=== PATIENT | female | born 1985 | race Caucasian/White ===

== ENCOUNTER → 2017-01-07 | Outpatient (CLI) | payer BC | END | disposition home or self-care (01) | LOC: MW.CHOBGYN 09:08 | PROVIDERS: ATTEND Advanced Practice Midwife | DX: Z34.90 Encounter for supervision of normal pregnancy, unspecified, unspecified trimester (principal) | CPT/HCPCS: 87081 ==

== ENCOUNTER 2017-01-25 13:06 | Inpatient (IN) | payer BC ==
[2017-01-25] MEDS ORDERED: Nalbuphine 10 MG/1 ML Vial IVPUSH PRN (13:47)
[2017-01-25] MEDS ORDERED: Lidocaine 1% 50 ML MDV INJECT PRN (13:47)
[2017-01-25] MEDS ORDERED: Water For Irrigation,Sterile 1,000 ML Container IRR PRN (13:47)
[2017-01-25] MEDS ORDERED: Sodium Chloride 0.9% 2.5 ML Syringe FLUSH PRN (13:47)
[2017-01-25] MEDS ORDERED: Sodium Chloride 0.9% 10 ML Syringe FLUSH PRN (13:47)
[2017-01-25] MEDS ORDERED: Carboprost Tromethamine 250 MCG/1 ML Amp IM PRN (13:47)
[2017-01-25] MEDS ORDERED: Methylergonovine 0.2 MG/1 ML Amp IM PRN (13:47)
[2017-01-25] MEDS ORDERED: Misoprostol 200 MCG Tab PO PRN (13:47)
[2017-01-25] MEDS ORDERED: Oxytocin/Lactated Ringers 30 UNIT/500 ML BAG IV SCH ×2 (14:00→17:30)
[2017-01-25] MEDS: Lactated Ringers 1,000 ML IV SCH ×3 (14:15→20:10)
--- NOTE | 2017-01-25 14:37 | PCM.LDHP ---
L&D History of Present Illness - General Date of Service: 01/25/17 Admit Problem/Dx: Patient Status Order with Admit Dx/Problem 01/25/17 13:47 Patient Status [ADT] Routine Admission Diagnosis/Problem Admission Diagnosis/Problem -related examination 01/25/17 14:32 31 yo EDC 02/01/2017 39wks. IOL for social/childcare provider issues. Source of Information: Patient History Limitations: Reports: No limitations - History of Present Illness Improves with: Reports: None Worsens with: Reports: None Associated Symptoms: Reports: N - Related Data Allergies/Adverse Reactions: Allergies Allergy/AdvReac Type Severity Reaction Status Date / Time codeine Allergy Hallucinati Verified 11/23/14 11:53 ons dimenhydrinate Allergy Difficulty Verified 11/23/14 11:53 [From Dramamine] Breathing egg Allergy Stomach Verified 11/23/14 11:53 Ache gluten Allergy Stomach Verified 11/23/14 11:53 Upset latex Allergy Redness Verified 11/23/14 11:54 milk Allergy Stomach Verified 11/23/14 11:53 Upset Home Medications: Home Meds Doxylamine Succinate [Unisom] 25 mg PO PRN 11/23/14 [History] traMADol [Ultram] 50 mg PO Q6H PRN #30 tablet 11/24/14 [Rx] Past Medical History - Past Health History Medical/Surgical History: Denies Medical/Surgical History Social & Family History - Family History Neurological: Reports: Alzheimers disease, Other (see below) Other Neurological Family History: epilepsy Psychiatric: Reports: Autism Endocrine/Metabolic: Reports: Diabetes, type II - Tobacco Use Smoking Status *Q: Never Smoker - Alcohol Use Days Per Week of Alcohol Use: 0 - Recreational Drug Use Recreational Drug Use: No Drug Use in Last 12 Months: No H&P Review of Systems - Review of Systems: Review Of Systems: See Below General: Reports: no symptoms HEENT: Reports: no symptoms Pulmonary: Reports: No Symptoms Cardiovascular: Reports: no symptoms Gastrointestinal: Reports: No symptoms Genitourinary: Reports: no symptoms Musculoskeletal: Reports: no symptoms Skin: Reports: no symptoms Psychiatric: Reports: no symptoms Neurological: Reports: No Symptoms Hematologic/Lymphatic: Reports: no symptoms Immunologic: Reports: no symptoms L&D Exam - Exam Exam: See Below - Vital Signs Weight: 81.647 kg - OB Specific movement: active heart tones: present Heart Rate (FHR) Variability: Moderate (6-25 bmp) Presentation: Vertex - Herrera Score Herrera Score Cervix Position: Posterior Herrera Score Consistency: Soft Herrera Score Effacement: 51-70% Herrera Score Dilation: 3-4 cm Herrera Score 's Station: -2 Herrera Score Total: 7 - Exam General: alert, oriented, cooperative HEENT: Hearing intact Lungs: Normal respiratory effort Abdomen: soft (gravid) Rectal Exam: Deferred Genitourinary: Normal bimanual exam (AROM clear), Cervical dilitation Back Exam: normal inspection, full range of motion Extremities: normal inspection Skin: warm, dry, intact Neurological: cranial nerves intact Psychiatric: alert, normal affect, normal mood - Patient Data Lab Results last 24 hrs: Laboratory Results - last 24 hr 01/25/17 Range/Units 14:05 WBC 8.20 (4.0-11.0) K/uL RBC 4.15 L (4.30-5.90) M/uL Hgb 10.5 L (12.0-16.0) g/dL Hct 34.0 L (36.0-46.0) % MCV 81.9 (80.0-98.0) fL MCH 25.3 L (27.0-32.0) pg MCHC 30.9 L (31.0-37.0) g/dL RDW Std Deviation 61.2 (28.0-62.0) fl RDW Coeff of Gato 21 H (11.0-15.0) % Plt Count 266 (150-400) K/uL MPV 9.80 (7.40-12.00) fL Nucleated RBC % 0.0 /100WBC Nucleated RBCs # 0 K/uL Result Diagrams: 01/25/17 14:05 - Problem List (1) Supervision of normal IUP (intrauterine ) in multigravida SNOMED Code(s): 782108958, 275970963, 065067213 ICD Code: Z34.90 - ENCNTR FOR SUPRVSN OF NORMAL , UNSP, UNSP TRIMESTER Status: Acute Priority: High Current Visit: Yes Qualifiers: Trimester: third trimester Qualified Code(s): Z34.93 - Encounter for supervision of normal , unspecified, third trimester Problem List Initiated/Reviewed/Updated: Yes Orders Last 24hrs: Active Orders 24 hr Category Date Time Status Patient Status [ADT] Routine ADT 01/25/17 13:47 Active Heart Tones [RC] CONTINUOUS Care 01/25/17 13:47 Active Non Stress Test [RC] PER UNIT ROUTINE Care 01/25/17 13:47 Active May Shower [RC] ASDIRECTED Care 01/25/17 13:47 Active Notify Provider [RC] PRN Care 01/25/17 13:47 Active Up ad Liliana [RC] ASDIRECTED Care 01/25/17 13:47 Active Vaginal Exam [RC] PRN Care 01/25/17 13:47 Active Vital Signs [RC] PER UNIT ROUTINE Care 01/25/17 13:47 Active Clear Liquid Diet [DIET] Diet 01/25/17 Dinner Active TYPE AND SCREEN [BBK] Routine Lab 01/25/17 14:05 Received Carboprost Tromethamine [Hemabate DS] Med 01/25/17 13:47 Active 250 mcg IM ASDIRECTED PRN Lactated Ringers [Ringers, Lactated] 1,000 ml Med 01/25/17 14:00 Active IV ASDIRECTED Lidocaine 1% [Xylocaine 1%] Med 01/25/17 13:47 Active 50 ml INJECT .ONCE PRN Methylergonovine [Methergine] Med 01/25/17 13:47 Active 0.2 mg IM ASDIRECTED PRN Misoprostol [Cytotec] Med 01/25/17 13:47 Active 200 mcg PO .ONCE PRN Nalbuphine [Nubain] Med 01/25/17 13:47 Active 10 mg IVPUSH Q1H PRN Sodium Chloride 0.9% [Saline Flush] Med 01/25/17 13:47 Active 10 ml FLUSH ASDIRECTED PRN Sodium Chloride 0.9% [Saline Flush] Med 01/25/17 13:47 Active 2.5 ml FLUSH ASDIRECTED PRN Water For Irrigation,Sterile [Sterile Water for Med 01/25/17 13:47 Active Irrigation] 1,000 ml IRR ASDIRECTED PRN Scalp Electrode [WOMSER] Per Unit Routine Oth 01/25/17 13:47 Ordered Peripheral IV Insertion Adult [OM.PC] Routine Oth 01/25/17 13:47 Ordered Resuscitation Status Routine Resus Stat 01/25/17 13:47 Ordered Medication Orders Carboprost Tromethamine (Hemabate Ds) 250 mcg IM ASDIRECTED PRN PRN Reason: Post Hemorrhage Lactated Ringer's (Ringers, Lactated) 1,000 mls @ 150 mls/hr IV ASDIRECTED CHRISTIE Lidocaine HCl (Xylocaine 1%) 50 ml INJECT .ONCE PRN PRN Reason: Laceration repair Methylergonovine Maleate (Methergine) 0.2 mg IM ASDIRECTED PRN PRN Reason: Post Hemorrhage Misoprostol (Cytotec) 200 mcg PO .ONCE PRN PRN Reason: Post Hemorrhage Nalbuphine HCl (Nubain) 10 mg IVPUSH Q1H PRN PRN Reason: Pain (severe 7-10) Stop: 01/25/17 15:48 Sodium Chloride (Saline Flush) 10 ml FLUSH ASDIRECTED PRN PRN Reason: Keep Vein Open Sodium Chloride (Saline Flush) 2.5 ml FLUSH ASDIRECTED PRN PRN Reason: Keep Vein Open Sterile Water (Sterile Water For Irrigation) 1,000 ml IRR ASDIRECTED PRN PRN Reason: delivery Assessment/Plan Comment:: A: 31 yo EDC 02/01/2017 39wks. IOL for social/childcare provider issues, O+, RI, GBS neg. P: Admit to L&D, AROM, if no change in 2 hours start pitocin, anticipate
[2017-01-25] MEDS ORDERED: Oxytocin/Lactated Ringers 30 UNIT/500 ML BAG ONE (17:26)
[2017-01-25] MEDS ORDERED: fentaNYL 100 MCG/2 ML SDV ONE (19:45)
[2017-01-25] MEDS ORDERED: Ropivacaine 0.2% 2 MG/ML 20 ML SDV ONE (19:46)
[2017-01-25] MEDS ORDERED: Ropivacaine HCl/PF 100 ML ONE (19:46)
--- NOTE | 2017-01-25 20:40 | PCM.PREANE ---
Preanesthetic Assessment - Anesthesia/Transfusion/Family Hx Anesthesia History: Prior Anesthesia Without Reaction (epidural anesthesia only , no GETA) Other Type of Anesthesia Reaction Comment: Denies any known family history Family History of Anesthesia Reaction: No Transfusion History: No Prior Transfusion(s) - Review of Systems General: No Symptoms Pulmonary: No Symptoms Cardiovascular: No Symptoms Gastrointestinal: No symptoms Neurological: No Symptoms Other: Reports: None - Physical Assessment NPO Status Date: 01/25/17 NPO Status Time: 20:35 (cl liquids) Height: 1.73 m Weight: 81.647 kg ASA Class: 2 Mental Status: Alert & Oriented x3 Airway Class: Mallampati = 2 Dentition: Reports: Normal Dentition Thyro-Mental Finger Breadths: 3 Mouth Opening Finger Breadths: 3 ROM/Head Extension: Full Lungs: Clear to auscultation, Normal respiratory effort Cardiovascular: Regular Rate, Regular Rhythm - Lab Values: Laboratory Last Values WBC 8.20 K/uL (4.0-11.0) 01/25/17 14:05 RBC 4.15 M/uL (4.30-5.90) L 01/25/17 14:05 Hgb 10.5 g/dL (12.0-16.0) L 01/25/17 14:05 Hct 34.0 % (36.0-46.0) L 01/25/17 14:05 MCV 81.9 fL (80.0-98.0) 01/25/17 14:05 MCH 25.3 pg (27.0-32.0) L 01/25/17 14:05 MCHC 30.9 g/dL (31.0-37.0) L 01/25/17 14:05 RDW Std Deviation 61.2 fl (28.0-62.0) 01/25/17 14:05 RDW Coeff of Gato 21 % (11.0-15.0) H 01/25/17 14:05 Plt Count 266 K/uL (150-400) 01/25/17 14:05 MPV 9.80 fL (7.40-12.00) 01/25/17 14:05 Nucleated RBC % 0.0 /100WBC 01/25/17 14:05 Nucleated RBCs # 0 K/uL 01/25/17 14:05 Blood Type O POSITIVE 04/02/17 14:05 Antibody Screen NEGATIVE 01/25/17 14:05 - Allergies Allergies/Adverse Reactions: Allergies Allergy/AdvReac Type Severity Reaction Status Date / Time codeine Allergy Hallucinati Verified 11/23/14 11:53 ons dimenhydrinate Allergy Difficulty Verified 11/23/14 11:53 [From Dramamine] Breathing egg Allergy Stomach Verified 11/23/14 11:53 Ache gluten Allergy Stomach Verified 11/23/14 11:53 Upset latex Allergy Redness Verified 11/23/14 11:54 milk Allergy Stomach Verified 11/23/14 11:53 Upset - Blood Blood Available: Yes Product(s) Available: PRBC - Acknowledgements Anesthesia Type Planned: Epidural Pt an Appropriate Candidate for the Planned Anesthesia: Yes Alternatives and Risks of Anesthesia Discussed w Pt/Guardian: Yes Pt/Guardian Understands and Agrees with Anesthesia Plan: Yes PreAnesthesia Questionnaire - Past Health History Medical/Surgical History: Denies Medical/Surgical History - SUBSTANCE USE Smoking Status *Q: Never Smoker Days Per Week of Alcohol Use: 0 Recreational Drug Use History: No - HOME MEDS Home Medications: Home Meds Doxylamine Succinate [Unisom] 25 mg PO PRN 11/23/14 [History] traMADol [Ultram] 50 mg PO Q6H PRN #30 tablet 11/24/14 [Rx] - CURRENT (IN HOUSE) MEDS Current Meds: Current Medications Carboprost Tromethamine (Hemabate Ds) 250 mcg IM ASDIRECTED PRN PRN Reason: Post Hemorrhage Lactated Ringer's (Ringers, Lactated) 1,000 mls @ 150 mls/hr IV ASDIRECTED CHRISTIE Last Admin: 01/25/17 20:10 Dose: 150 mls/hr Oxytocin/Lactated Ringer's (Pitocin In Lr 30 Units/500 Ml) 30 unit in 500 mls @ 2 mls/hr IV TITRATE CHRISTIE; 2 MUNITS/MIN PRN Reason: Protocol Last Titration: 01/25/17 18:19 Dose: 6 munits/min, 6 mls/hr Lidocaine HCl (Xylocaine 1%) 50 ml INJECT .ONCE PRN PRN Reason: Laceration repair Methylergonovine Maleate (Methergine) 0.2 mg IM ASDIRECTED PRN PRN Reason: Post Hemorrhage Misoprostol (Cytotec) 200 mcg PO .ONCE PRN PRN Reason: Post Hemorrhage Sodium Chloride (Saline Flush) 10 ml FLUSH ASDIRECTED PRN PRN Reason: Keep Vein Open Sodium Chloride (Saline Flush) 2.5 ml FLUSH ASDIRECTED PRN PRN Reason: Keep Vein Open Sterile Water (Sterile Water For Irrigation) 1,000 ml IRR ASDIRECTED PRN PRN Reason: delivery Discontinued Medications Fentanyl (Sublimaze) Confirm Administered Dose 300 mcg .ROUTE .STK-MED ONE Stop: 01/25/17 19:46 Oxytocin/Lactated Ringer's (Pitocin In Lr 30 Units/500 Ml) 30 unit in 500 mls @ 999 mls/hr IV TITRATE CHRISTIE PRN Reason: 999 MUNITS/MIN Stop: 01/25/17 14:31 Oxytocin/Lactated Ringer's (Pitocin In Lr 30 Units/500 Ml) Confirm Administered Dose 30 unit in 500 mls @ as directed .ROUTE .STK-MED ONE Stop: 01/25/17 17:27 Ropivacaine (Naropin 0.2%) Confirm Administered Dose 100 mls @ as directed .ROUTE .STK-MED ONE Stop: 01/25/17 19:47 Nalbuphine HCl (Nubain) 10 mg IVPUSH Q1H PRN PRN Reason: Pain (severe 7-10) Stop: 01/25/17 15:48 Ropivacaine (Naropin 0.2%) Confirm Administered Dose 20 ml .ROUTE .STK-MED ONE Stop: 01/25/17 19:47 Preanesthetic Assessment - ANESTHESIA/TRANSFUSION/FAMILY HX Anesthesia/Transfusion History: No Prior Transfusion(s), Prior Anesthesia Other Type of Anesthesia Reaction Comment: Denies any known family history Family History of Anesthesia Reaction: No Intubation History: Unknown - PHYSICAL ASSESSMENT Height: 1.73 m Weight: 81.647 kg - LAB Values: Laboratory Last Values WBC 8.20 K/uL (4.0-11.0) 01/25/17 14:05 RBC 4.15 M/uL (4.30-5.90) L 01/25/17 14:05 Hgb 10.5 g/dL (12.0-16.0) L 01/25/17 14:05 Hct 34.0 % (36.0-46.0) L 01/25/17 14:05 MCV 81.9 fL (80.0-98.0) 01/25/17 14:05 MCH 25.3 pg (27.0-32.0) L 01/25/17 14:05 MCHC 30.9 g/dL (31.0-37.0) L 01/25/17 14:05 RDW Std Deviation 61.2 fl (28.0-62.0) 01/25/17 14:05 RDW Coeff of Gato 21 % (11.0-15.0) H 01/25/17 14:05 Plt Count 266 K/uL (150-400) 01/25/17 14:05 MPV 9.80 fL (7.40-12.00) 01/25/17 14:05 Nucleated RBC % 0.0 /100WBC 01/25/17 14:05 Nucleated RBCs # 0 K/uL 01/25/17 14:05 Blood Type O POSITIVE 01/25/17 14:05 Antibody Screen NEGATIVE 01/25/17 14:05 - ALLERGIES Allergies/Adverse Reactions: Allergies Allergy/AdvReac Type Severity Reaction Status Date / Time codeine Allergy Hallucinati Verified 11/23/14 11:53 ons dimenhydrinate Allergy Difficulty Verified 11/23/14 11:53 [From Dramamine] Breathing egg Allergy Stomach Verified 11/23/14 11:53 Ache gluten Allergy Stomach Verified 11/23/14 11:53 Upset latex Allergy Redness Verified 11/23/14 11:54 milk Allergy Stomach Verified 11/23/14 11:53 Upset - Free Text/Narrative Note: Labor Analgesia/Epidural Procedure start date: 01/25/17 time: 1946 Attending provider aware Chart reviewed Permit signed Labs reviewed VS/ FHR reviewed Pt identified/ID band Pt assessed Risks/Benefits discussed and accepted Monitors in place (BP, HR, SPO2) Patient, Site, Procedure Verification, Pause. Pain "10/10" Fluid bolus infused (fluid type and amount): 1500 ml LR Position: Sitting @ 1955 Prep: Betadine X 3 Sterile Drape Intradermal Wheal: 3 ml 1% Lidocaine Regional placement level: L3-4 Needle: 17 g Tuohy Approach: Midline Technique: TANYA glass syringe W 3 ml Sterile water TANYA needle depth: 7 cm Paresthesia: None Fluid Obtained: None Catheter insertion time: 1999 Catheter depth at skin: 20 cm Test Dose Time: 2000 RX: 3 ml 1.5% lidocaine with 1:200,000 epi Response: Negative Loading dose Time: 1318-2109 RX: 100 mcg fentanyl followed by 10 ml 0.2% ropivacaine in 5 ml increments over 6 minutes Pt position: semi fowlers with RAVIN Continuous infusion Start Time: 2012 RX: 100 ml 0.2% ropivacaine with 200 mcg fentanyl added [2mcg/m.] Continuous infusion rate: 8 ml/hr CREMATORY ATTENDANT bolus option: 5 ml q 15 min Pt response Post procedure pain level: reports pain much improved, but does have "pressure" in bottom. Has made progress in labor during placement. VS and FHR monitored in unit post placement (See OB traceview for documentation. ) Procedure end date: 01/25/17 time: 2044
--- NOTE | 2017-01-25 22:17 | PCM.DEL ---
L & D Note - General Info Date of Service: 01/25/17 Mother's Due Date: 02/01/17 - Delivery Note Labor: spontaneous Presentation: Vertex Anesthesia Type: None Episiotomy Type: None Laceration: none Placenta: intact, spontaneous Cord: 3 vessels Estimated blood loss: 200 Resuscitation needed: No Harleigh: stimulated Score 1 min: 9 Score 5 min: 9 Second Stage Interventions: Reports: Pushing Effectively Delivery Comments (Free Text/Narrative):: of viable male over intact perineum. Head delivered, nuchel cord x1, shoulders and body delivered through easily. to mothers abdomen with RN at for eval. Delayed cord clamping, pitocin to IVF, Cord clamped and cut by FOB. Cord blood collected. Placenta delivered grossly intact. 3VC. Inspection noted intact perineum. EBL 200cc, APGARS 9/9, Wt: 8lb 5oz. Mother and baby left in stable condition for recovery bonding. Induction Criteria - Herrera Score Herrera Score Dilation: 3-4 cm Herrera Score Effacement: >80% Herrera Score Infant's Station: -2 Herrera Score Consistency: Soft Herrera Score Cervix Position: Posterior Herrera Score Total: 8 Herrera Score Presenting Part: Reports: Cephalic - Induction Gestational Age >/= 39 wks: Yes Estimated pelvis: Reports: Adequate Reassuring monitoring strip: Yes Absence of tachy systole: Yes - General Info Date of Service: 01/25/17 Admission Dx/Problem (Free Text): Patient Status Order with Admit Dx/Problem 01/25/17 13:47 Patient Status [ADT] Routine Admission Diagnosis/Problem Admission Diagnosis/Problem -related examination 01/25/17 14:32 31 yo EDC 02/01/2017 39wks. IOL for social/early childhood issues. Functional Status: Reports: pain controlled - Review of Systems General: Reports: No Symptoms HEENT: Reports: no symptoms Pulmonary: Reports: no symptoms Cardiovascular: Reports: No Symptoms Gastrointestinal: Reports: No symptoms Genitourinary: Reports: no symptoms Musculoskeletal: Reports: no symptoms Skin: Reports: no symptoms Neurological: Reports: No Symptoms Psychiatric: Reports: no symptoms - Patient Data Weight - most recent: 81.647 kg Lab Results last 24 hrs: Laboratory Results - last 24 hr 01/25/17 01/25/17 Range/Units 14:05 14:05 WBC 8.20 (4.0-11.0) K/uL RBC 4.15 L (4.30-5.90) M/uL Hgb 10.5 L (12.0-16.0) g/dL Hct 34.0 L (36.0-46.0) % MCV 81.9 (80.0-98.0) fL MCH 25.3 L (27.0-32.0) pg MCHC 30.9 L (31.0-37.0) g/dL RDW Std Deviation 61.2 (28.0-62.0) fl RDW Coeff of Gato 21 H (11.0-15.0) % Plt Count 266 (150-400) K/uL MPV 9.80 (7.40-12.00) fL Nucleated RBC % 0.0 /100WBC Nucleated RBCs # 0 K/uL Blood Type O POSITIVE Antibody Screen NEGATIVE Med Orders - Current: Current Medications Carboprost Tromethamine (Hemabate Ds) 250 mcg IM ASDIRECTED PRN PRN Reason: Post Hemorrhage Lactated Ringer's (Ringers, Lactated) 1,000 mls @ 150 mls/hr IV ASDIRECTED CHRISTIE Last Admin: 01/25/17 20:10 Dose: 150 mls/hr Oxytocin/Lactated Ringer's (Pitocin In Lr 30 Units/500 Ml) 30 unit in 500 mls @ 2 mls/hr IV TITRATE CHRISTIE; 2 MUNITS/MIN PRN Reason: Protocol Last Titration: 01/25/17 18:19 Dose: 6 munits/min, 6 mls/hr Lidocaine HCl (Xylocaine 1%) 50 ml INJECT .ONCE PRN PRN Reason: Laceration repair Methylergonovine Maleate (Methergine) 0.2 mg IM ASDIRECTED PRN PRN Reason: Post Hemorrhage Misoprostol (Cytotec) 200 mcg PO .ONCE PRN PRN Reason: Post Hemorrhage Sodium Chloride (Saline Flush) 10 ml FLUSH ASDIRECTED PRN PRN Reason: Keep Vein Open Sodium Chloride (Saline Flush) 2.5 ml FLUSH ASDIRECTED PRN PRN Reason: Keep Vein Open Sterile Water (Sterile Water For Irrigation) 1,000 ml IRR ASDIRECTED PRN PRN Reason: delivery Discontinued Medications Fentanyl (Sublimaze) Confirm Administered Dose 300 mcg .ROUTE .STK-MED ONE Stop: 01/25/17 19:46 Oxytocin/Lactated Ringer's (Pitocin In Lr 30 Units/500 Ml) 30 unit in 500 mls @ 999 mls/hr IV TITRATE CHRISTIE PRN Reason: 999 MUNITS/MIN Stop: 01/25/17 14:31 Oxytocin/Lactated Ringer's (Pitocin In Lr 30 Units/500 Ml) Confirm Administered Dose 30 unit in 500 mls @ as directed .ROUTE .STK-MED ONE Stop: 01/25/17 17:27 Ropivacaine (Naropin 0.2%) Confirm Administered Dose 100 mls @ as directed .ROUTE .STK-MED ONE Stop: 01/25/17 19:47 Nalbuphine HCl (Nubain) 10 mg IVPUSH Q1H PRN PRN Reason: Pain (severe 7-10) Stop: 01/25/17 15:48 Ropivacaine (Naropin 0.2%) Confirm Administered Dose 20 ml .ROUTE .STK-MED ONE Stop: 01/25/17 19:47 - Exam General: alert, oriented, cooperative, no acute distress Lungs: Normal respiratory effort Abdomen: soft, no tenderness, no distension (Female) Exam: Normal external exam, Normal bimanual exam, Vaginal bleeding Back Exam: normal inspection Extremities: no edema Skin: warm, dry, intact Wound/Incisions: healing well Neurological: no new focal deficit Psy/Mental Status: alert, normal affect, normal mood - Problem List & Annotations (1) Supervision of normal IUP (intrauterine ) in multigravida SNOMED Code(s): 936879106, 074932079, 135199609 Code(s): Z34.90 - ENCNTR FOR SUPRVSN OF NORMAL , UNSP, UNSP TRIMESTER Status: Acute Priority: High Current Visit: Yes Qualifiers: Trimester: third trimester Qualified Code(s): Z34.93 - Encounter for supervision of normal , unspecified, third trimester (2) (normal spontaneous vaginal delivery) SNOMED Code(s): 40035815 Code(s): O80 - ENCOUNTER FOR FULL-TERM UNCOMPLICATED DELIVERY Status: Acute Priority: Medium Current Visit: Yes - Problem List Review Problem List Initiated/Reviewed/Updated: Yes - My Orders Last 24 Hours: My Active Orders 01/25/17 13:47 Patient Status [ADT] Routine Heart Tones [RC] CONTINUOUS Non Stress Test [RC] PER UNIT ROUTINE May Shower [RC] ASDIRECTED Notify Provider [RC] PRN Up ad Liliana [RC] ASDIRECTED Vaginal Exam [RC] PRN Vital Signs [RC] PER UNIT ROUTINE Carboprost Tromethamine [Hemabate DS] 250 mcg IM ASDIRECTED PRN Lidocaine 1% [Xylocaine 1%] 50 ml INJECT .ONCE PRN Methylergonovine [Methergine] 0.2 mg IM ASDIRECTED PRN Misoprostol [Cytotec] 200 mcg PO .ONCE PRN Sodium Chloride 0.9% [Saline Flush] 10 ml FLUSH ASDIRECTED PRN Sodium Chloride 0.9% [Saline Flush] 2.5 ml FLUSH ASDIRECTED PRN Water For Irrigation,Sterile [Sterile Water for Irrigation] 1,000 ml IRR ASDIRECTED PRN Scalp Electrode [WOMSER] Per Unit Routine Peripheral IV Insertion Adult [OM.PC] Routine Resuscitation Status Routine 01/25/17 14:00 Lactated Ringers [Ringers, Lactated] 1,000 ml IV ASDIRECTED 01/25/17 17:30 Oxytocin/Lactated Ringers [Pitocin in LR 30 Units/500 ML] 30 unit in 500 ml IV TITRATE 01/25/17 Dinner Clear Liquid Diet [DIET] - Assessment Assessment:: of viable male. Intact perineum, APGARS 9/9, EBL 200cc, Wt: 8lb 5oz. - Plan Plan:: A: 31 yo EDC 02/01/2017 39wks. IOL for social/early childhood issues, O+, RI, GBS neg. P: Admit to L&D, AROM, if no change in 2 hours start pitocin, anticipate Post P: Routine pp plan of care
[2017-01-25] MEDS ORDERED: Ibuprofen 400 MG Tab PO PRN (22:21)
[2017-01-25] MEDS ORDERED: Benzocaine/Menthol 20%-0.5% Spray 78 GM Cannister TOP PRN (22:21)
[2017-01-25] MEDS ORDERED: Docusate Sodium 100 MG Cap PO PRN (22:21)
[2017-01-25] MEDS ORDERED: Acetaminophen 500 MG Tab PO PRN (22:21)
[2017-01-25] MEDS ORDERED: Bisacodyl 10 MG Supp RECTAL PRN (22:21)
[2017-01-25] MEDS ORDERED: Witch Hazel Medicated Pads 40/Jar TOP PRN (22:21)
[2017-01-25] MEDS ORDERED: Lanolin 100% Cream 7 GM Tube TOP PRN (22:21)
[2017-01-26] MEDS: Ibuprofen 800 MG Tab PO PRN ×4 (00:54→22:13)
--- NOTE | 2017-01-26 07:28 | PCM48HPAN ---
Post Anesthesia Note - EVALUATION WITHIN 48HRS OF ANESTHETIC Vital Signs in Normal Range: Yes Patient Participated in Evaluation: Yes Respiratory Function Stable: Yes Airway Patent: Yes Cardiovascular Function Stable: Yes Hydration Status Stable: Yes Pain Control Satisfactory: Yes Nausea and Vomiting Control Satisfactory: Yes Mental Status Recovered: Yes
[2017-01-26] MEDS: Acetaminophen 500 MG Tab PO PRN ×2 (10:19→17:58)
[2017-01-26] MEDS: oxyCODONE 5 MG Tab PO PRN ×10 (10:20→22:34)
--- NOTE | 2017-01-26 10:30 | PCM.DCSUM1 ---
Discharge Summary - Hospital Course Free Text/Narrative:: Discharge home with infant. Follow up in 6 weeks or sooner if needed. - Discharge Data Discharge Date: 01/26/17 Discharge Disposition: Home, Self-Care 01 Condition: Good - Discharge Diagnosis/Problem(s) (1) Supervision of normal IUP (intrauterine ) in multigravida SNOMED Code(s): 019184215, 600983948, 511226821 ICD Code: Z34.90 - ENCNTR FOR SUPRVSN OF NORMAL , UNSP, UNSP TRIMESTER Status: Acute Priority: High Current Visit: Yes Qualifiers: Trimester: third trimester Qualified Code(s): Z34.93 - Encounter for supervision of normal , unspecified, third trimester (2) (normal spontaneous vaginal delivery) SNOMED Code(s): 09320265 ICD Code: O80 - ENCOUNTER FOR FULL-TERM UNCOMPLICATED DELIVERY Status: Acute Priority: Medium Current Visit: Yes - Patient Instructions Diet: Usual Diet as Tolerated Activity: As Tolerated, Rest and Relax Today Driving: Do Not Drive (for a few days) Showering/Bathing: May Shower Notify Provider of: Fever, Increased Pain, Swelling and Redness, Nausea and/or Vomiting - Discharge Plan Home Medications: Home Meds Doxylamine Succinate [Unisom] 25 mg PO PRN 11/23/14 [History] traMADol [Ultram] 50 mg PO Q6H PRN #30 tablet 11/24/14 [Rx] Referrals: [facility] [Outside] Elmira Tena CNM [Mid-] - 03/09/17 1:00 pm - General Info Date of Service: 01/26/17 Admission Dx/Problem (Free Text: Patient Status Order with Admit Dx/Problem 01/25/17 13:47 Patient Status [ADT] Routine Admission Diagnosis/Problem Admission Diagnosis/Problem -related examination 01/25/17 14:32 31 yo EDC 02/01/2017 39wks. IOL for social/early childhood teacher issues. Functional Status: Reports: pain controlled, tolerating diet, ambulating, urinating - Review of Systems General: Reports: No Symptoms HEENT: Reports: no symptoms Pulmonary: Reports: no symptoms Cardiovascular: Reports: No Symptoms Gastrointestinal: Reports: No symptoms Genitourinary: Reports: no symptoms Musculoskeletal: Reports: no symptoms Skin: Reports: no symptoms Neurological: Reports: No Symptoms Psychiatric: Reports: no symptoms - Patient Data Vitals - Most Recent: Last Vital Signs Temp 36.6 C 01/26/17 06:30 Pulse 75 01/26/17 06:30 Resp 17 01/26/17 06:30 BP 111/63 01/26/17 06:30 Pulse Ox 98 01/26/17 06:30 Weight - Most Recent: 81.647 kg Lab Results - Last 24 hrs: Laboratory Results - last 24 hr 01/25/17 01/25/17 Range/Units 14:05 14:05 WBC 8.20 (4.0-11.0) K/uL RBC 4.15 L (4.30-5.90) M/uL Hgb 10.5 L (12.0-16.0) g/dL Hct 34.0 L (36.0-46.0) % MCV 81.9 (80.0-98.0) fL MCH 25.3 L (27.0-32.0) pg MCHC 30.9 L (31.0-37.0) g/dL RDW Std Deviation 61.2 (28.0-62.0) fl RDW Coeff of Gato 21 H (11.0-15.0) % Plt Count 266 (150-400) K/uL MPV 9.80 (7.40-12.00) fL Nucleated RBC % 0.0 /100WBC Nucleated RBCs # 0 K/uL Blood Type O POSITIVE Antibody Screen NEGATIVE Med Orders - Current: Current Medications Acetaminophen (Tylenol Extra Strength) 500 mg PO Q4H PRN PRN Reason: Pain Acetaminophen (Tylenol Extra Strength) 1,000 mg PO Q4H PRN PRN Reason: Pain Last Admin: 01/26/17 10:19 Dose: 1,000 mg Benzocaine/Menthol (Dermoplast Pain Relief 20%-0.5% Elysian) 78 gm TOP ASDIRECTED PRN PRN Reason: Perineal Comfort Measure Last Admin: 01/26/17 00:50 Dose: 1 can Bisacodyl (Dulcolax) 10 mg RECTAL .ONCE PRN PRN Reason: Constipation Docusate Sodium (Colace) 100 mg PO BID PRN PRN Reason: Constipation Last Admin: 01/26/17 08:12 Dose: 100 mg Emollient Ointment (Lansinoh Hpa) 0 gm TOP ASDIRECTED PRN PRN Reason: Sore Nipples Last Admin: 01/26/17 00:51 Dose: 1 tube Ibuprofen (Motrin) 400 mg PO Q4H PRN PRN Reason: Pain Ibuprofen (Motrin) 800 mg PO Q6H PRN PRN Reason: Pain Last Admin: 01/26/17 08:12 Dose: 800 mg Oxycodone HCl (Oxycodone) 5 mg PO Q2H PRN PRN Reason: Pain (moderate 4-6) Stop: 01/27/17 23:59 Witch Madonna (Tucks) 1 pad TOP ASDIRECTED PRN PRN Reason: comfort care Discontinued Medications Carboprost Tromethamine (Hemabate Ds) 250 mcg IM ASDIRECTED PRN PRN Reason: Post Hemorrhage Fentanyl (Sublimaze) Confirm Administered Dose 300 mcg .ROUTE .STK-MED ONE Stop: 01/25/17 19:46 Lactated Ringer's (Ringers, Lactated) 1,000 mls @ 150 mls/hr IV ASDIRECTED CHRISTIE Last Admin: 01/25/17 20:10 Dose: 150 mls/hr Oxytocin/Lactated Ringer's (Pitocin In Lr 30 Units/500 Ml) 30 unit in 500 mls @ 999 mls/hr IV TITRATE CHRISTIE PRN Reason: 999 MUNITS/MIN Stop: 01/25/17 14:31 Oxytocin/Lactated Ringer's (Pitocin In Lr 30 Units/500 Ml) 30 unit in 500 mls @ 2 mls/hr IV TITRATE CHRISTIE; 2 MUNITS/MIN PRN Reason: Protocol Last Titration: 01/25/17 21:51 Dose: 999 mls/hr Oxytocin/Lactated Ringer's (Pitocin In Lr 30 Units/500 Ml) Confirm Administered Dose 30 unit in 500 mls @ as directed .ROUTE .STK-MED ONE Stop: 01/25/17 17:27 Ropivacaine (Naropin 0.2%) Confirm Administered Dose 100 mls @ as directed .ROUTE .STK-MED ONE Stop: 01/25/17 19:47 Lidocaine HCl (Xylocaine 1%) 50 ml INJECT .ONCE PRN PRN Reason: Laceration repair Methylergonovine Maleate (Methergine) 0.2 mg IM ASDIRECTED PRN PRN Reason: Post Hemorrhage Misoprostol (Cytotec) 200 mcg PO .ONCE PRN PRN Reason: Post Hemorrhage Nalbuphine HCl (Nubain) 10 mg IVPUSH Q1H PRN PRN Reason: Pain (severe 7-10) Stop: 01/25/17 15:48 Ropivacaine (Naropin 0.2%) Confirm Administered Dose 20 ml .ROUTE .[facility]-MED ONE Stop: 01/25/17 19:47 Sodium Chloride (Saline Flush) 10 ml FLUSH ASDIRECTED PRN PRN Reason: Keep Vein Open Sodium Chloride (Saline Flush) 2.5 ml FLUSH ASDIRECTED PRN PRN Reason: Keep Vein Open Sterile Water (Sterile Water For Irrigation) 1,000 ml IRR ASDIRECTED PRN PRN Reason: delivery - Exam General: Reports: alert, oriented Lungs: Reports: Normal respiratory effort Abdomen: Reports: soft, no tenderness, no distension (Female) Exam: Vaginal bleeding Rectal (Female) Exam: Deferred Back Exam: Reports: normal inspection Extremities: Reports: no edema Skin: Reports: warm, dry, intact Wound/Incisions: Reports: healing well Neurological: Reports: no new focal deficit Psy/Mental Status: Reports: alert, normal affect, normal mood *Q Meaningful Use (DIS) - VTE *Q VTE Criteria *Q: - Stroke *Q Stroke Criteria *Q: - AMI *Q AMI Criteria *Q:
[2017-01-26 20:21] VITALS: BP 128/74
== END 2017-01-26 22:56 | disposition home or self-care (01) | DRG 560 ==
LOC: MW.OBCHECK 13:06 → MW.OB 13:08 → MW.OBCHECK 13:47 → OBSVTOIN 22:23
PROVIDERS: ADMIT Obstetrics & Gynecology; ATTEND Obstetrics & Gynecology
PROC: 10E0XZZ Delivery of Products of Conception, External Approach (ICD-10-PCS; principal; 2017-01-25)
DX: O69.1XX0 Labor and delivery complicated by cord around neck, with compression, not applicable or unspecified (principal); Z3A.39 39 weeks gestation of pregnancy; Z37.0 Single live birth
CPT/HCPCS: 01967; 59025; 85027; 86850; 86900; 86901; A9270-GY; J2795; J3010; J7120

== ENCOUNTER 2022-11-19 09:31 | Day surgery (SDC) | payer BC ==
[~2022-11-19 09:31] MED LIST: Acetaminophen 1,000 MG in Premix Bag 1 BAG IV SCH; Lactated Ringers 1,000 ML IV SCH; Pregabalin 75 MG Cap PO SCH; cefOXitin 2 GM in Premix Bag 1 BAG IV SCH
[2022-11-19] MEDS ORDERED: Dexmedetomidine 200 MCG/2 ML SDV ONE (10:03)
[2022-11-19] MEDS ORDERED: fentaNYL 100 MCG/2 ML SDV ONE ×2 (10:04→12:13)
[2022-11-19] MEDS ORDERED: Propofol 200 MG/20 ML SDV ONE (10:04)
[2022-11-19] MEDS ORDERED: Rocuronium 100 MG/10 ML MDV ONE (10:05)
[2022-11-19] MEDS ORDERED: Indocyanine Green 25 MG SDV ONE (10:05)
[2022-11-19] MEDS ORDERED: Naloxone 0.4 MG/ML SDV IVPUSH PRN (10:28)
[2022-11-19] MEDS ORDERED: fentaNYL 50 MCG/ML SDV IVPUSH PRN (10:28)
[2022-11-19] MEDS ORDERED: Ondansetron 4 MG/2 ML SDV IVPUSH PRN (10:28)
[2022-11-19] MEDS ORDERED: Albuterol 0.083% 2.5 MG/3 ML Neb Soln NEB PRN (10:28)
[2022-11-19] MEDS ORDERED: Metoclopramide 10 MG/2 ML SDV IVPUSH PRN (10:28)
[2022-11-19] MEDS ORDERED: Morphine 2 MG/ML SYRINGE IVPUSH PRN (10:28)
[2022-11-19] MEDS ORDERED: HYDROmorphone 1 MG/ML Syringe IVPUSH PRN (10:28)
[2022-11-19] MEDS ORDERED: Bupivacaine 0.25% 30 ML SDV ONE (10:38)
[2022-11-19] MEDS ORDERED: Bupivacaine 0.25% 10 ML SDV ONE (10:42)
[2022-11-19] MEDS ORDERED: Bupivacaine 0.5% 30 ML SDV ONE (10:43)
[2022-11-19] MEDS ORDERED: Magnesium Sulfate (4.06 MEQ/ML) 5 GM/10 ML SDV ONE (11:12)
[2022-11-19] MEDS ORDERED: cefOXitin 1 GM Vial ONE (11:13)
[2022-11-19] MEDS ORDERED: Dexamethasone 4 MG/ML 5 ML MDV ONE (11:20)
[2022-11-19] MEDS ORDERED: Ketorolac 30 MG/ML SDV ONE (11:32)
[2022-11-19] MEDS ORDERED: Sugammadex Sodium 200 MG/2 ML VIAL ONE (11:32)
[2022-11-19] MEDS ORDERED: Ondansetron 4 MG/2 ML SDV ONE (11:32)
[2022-11-19 14:50] VITALS: BP 123/73; PULSE 85
[2022-11-19] MEDS ORDERED: Ondansetron 4 MG Tab.DIS PO ONE (15:26)
== END 2022-11-19 16:00 | disposition home or self-care (01) ==
LOC: MW.SDS 09:31
PROVIDERS: ATTEND Surgery
DX: K80.10 Calculus of gallbladder with chronic cholecystitis without obstruction (principal); K42.9 Umbilical hernia without obstruction or gangrene; K82.8 Other specified diseases of gallbladder; F41.9 Anxiety disorder, unspecified; F32.A Depression, unspecified; R73.03 Prediabetes; Z79.899 Other long term (current) drug therapy; Z91.040 Latex allergy status; Z88.5 Allergy status to narcotic agent; Z98.890 Other specified postprocedural states
CPT/HCPCS: 47562; 81025; A9270; J0131; J0694; J1100; J1170; J1885; J2405; J2704; J3010; J3475; J3490; J7120; 00790; 64488

== ENCOUNTER 2023-10-24 18:04 | Emergency (ER) | payer BC ==
[2023-10-24] MEDS ORDERED: amLODIPine 5 MG Tab PO ONE (20:06)
[2023-10-24 20:41] VITALS: BP 116/74; PULSE 85
== END 2023-10-24 20:42 | disposition home or self-care (01) ==
LOC: MW.ED 18:04
DX: R51.9 Headache, unspecified (principal); I10 Essential (primary) hypertension; T46.5X5A Adverse effect of other antihypertensive drugs, initial encounter; Z90.49 Acquired absence of other specified parts of digestive tract; Z91.040 Latex allergy status; Z79.899 Other long term (current) drug therapy; Z88.8 Allergy status to other drugs, medicaments and biological substances
CPT/HCPCS: 99283; A9270